=== PATIENT | female | born 1970 | race Caucasian/White ===

== ENCOUNTER → 2021-07-31 | Outpatient (CLI) | payer BC, OTHER ==
[~2021-07-31] MED LIST: BIOTEN; FLEXERIL PO; NAPROSYN375 MG PO; NOHOMEMEDICATIONS; XANAX 0.25 MG0.25 MG PO
== END ==
LOC: SJCVCIMAG 10:10
PROVIDERS: ATTEND Internal Medicine
DX: I07.1 Rheumatic tricuspid insufficiency (principal); R00.2 Palpitations; R94.31 Abnormal electrocardiogram [ECG] [EKG]; R01.1 Cardiac murmur, unspecified; R07.9 Chest pain, unspecified; Z82.49 Family history of ischemic heart disease and other diseases of the circulatory system; Z87.891 Personal history of nicotine dependence; Z72.89 Other problems related to lifestyle; Z79.899 Other long term (current) drug therapy